=== PATIENT | female | born 1965 | race African-American/Black ===

== ENCOUNTER 2024-06-09 17:14 | Emergency (ER) | payer OTHER, SELFPAY ==
[2024-06-09 17:28] VITALS: BP 135/72; PULSE 82; RESP 16; TEMP 37.1; O2SAT 99
[2024-06-09 17:54] LABS: EDCOVIDSCREEN Negative (Negative)
--- NOTE | 2024-06-09 17:57 | ED.URI ---
HPI - URI/Sore Throat General Chief Complaint: Upper Respiratory Infection Stated Complaint: Dizziness/Chills Time Seen by Provider: 06/09/24 17:57 Source: patient Mode of arrival: ambulatory Limitations: no limitations History of Present Illness HPI Narrative: 58 yo F presents with c/o dizziness and fatigue for approx. 4 to 5 days. I feel drained, no energy . Denies URI symptoms. Prescribed hydralazine and clonidine 1 wk ago. Pt has been taking clonidine twice a day. Was not aware that she was only suppose to be taking it as needed for BP over 180. Has not been checking BP daily. Denies CP/SOB. No N/V. Last took clonidine at 10am. [place] dizzy prior to arrival when standing. No dizziness at this time. All systems reviewed and negative except as noted above. Related Data Home Medications Medication Instructions Recorded Confirmed clonidine HCl 0.1 mg tablet 0.1 mg PO DAILY 06/09/24 06/09/24 hydralazine 10 mg tablet 10 mg PO BID 06/09/24 06/09/24 valsartan 160 mg tablet 160 mg PO DAILY 06/09/24 06/09/24 Allergies Allergy/AdvReac Type Severity Reaction Status Date / Time No Known Allergies Allergy Verified 06/09/24 17:26 Review of Systems Review of Systems: CONSTITUTIONAL: Denies fever, chills, or sweats. EYES: Denies visual changes, redness, or discharge. ENT: Denies rhinorrhea, congestion, sore throat, or otalgia. CARDIOVASCULAR: Denies chest pain, palpitations, or edema. reports dizziness and fatigue RESPIRATORY: Denies cough or dyspnea. GASTROINTESTINAL: Denies abdominal pain, nausea, vomiting, or diarrhea. GENITOURINARY: Denies dysuria or hematuria. SKIN: Denies rash or itching. MUSCULOSKELETAL: Denies back pain, joint pain, or myalgia. NEUROLOGIC: Denies headache, numbness, or weakness. PSYCHIATRIC: Denies anxiety or depression. All other systems reviewed are negative, except as documented in HPI. [facility] Family History Family History (System 04/22/21 @ 13:50 by Chaitanya Bryan) Mother Hypertension Other Diabetes mellitus Social History Social History (System 04/22/21 @ 13:50 by Chaitanya Bryan) Smoking status: Never smoker Second hand tobacco smoke exposure: Yes Alcohol intake: never Comments At time of signature, agree with nursing past medical, surgical, social and family history. There is no relevant family history pertinent to the presenting complaint. Exam Narrative: GENERAL: This is a well-nourished, well-developed patient, in no apparent distress. HEAD: normocephalic, atraumatic. EYES: PERRL. Sclera clear/white. Vision is grossly intact. EARS: External ears normal, auditory canals clear and without drainage, TMs normal without perforation. Hearing grossly intact. NOSE: External nose normal with no obvious nasal discharge, nares without redness, no rhinorrhea. THROAT: Mucous membranes moist, posterior pharynx clear. NECK: Neck supple, non-tender without lymphadenopathy, masses or thyromegaly. CARDIOVASCULAR: Regular rate and rhythm without murmurs, gallops, or rubs. RESPIRATORY: Clear to auscultation. Breath sounds equal bilaterally. No wheezes, rales, or rhonchi. SKIN: warm, Dry, intact with no suspicious lesions or rash, good texture and turgor. NEURO: awake, alert, and oriented to person, place and time. There were no obvious focal neurologic abnormalities. EXTREMITIES: No joint tenderness, effusion, or edema noted. Course Course Level of Care: Express Care Visit Vital Signs Vital signs: Vital Signs Temperature 37.1 C 06/09/24 17:28 Pulse Rate 82 06/09/24 17:28 Respiratory Rate 16 06/09/24 17:28 Blood Pressure 135/72 06/09/24 17:28 Pulse Oximetry 99 06/09/24 17:28 Oxygen Delivery Room Air 06/09/24 17:28 Temperature 37.1 C 06/09/24 17:28 Pulse Rate 82 06/09/24 17:28 Respiratory Rate 16 06/09/24 17:28 Blood Pressure 135/72 06/09/24 17:28 Pulse Oximetry 99 06/09/24 17:28 Oxygen Delivery Room Air 06/09/24 17:28 [email or web address]
--- NOTE | 2024-06-09 18:06 | ECG_ITS ---
Test Date: 2024-06-09 18:16:57 Measurements Intervals [place] Rate: 73 P: 34 IN: 212 QRS: -29 QRSD: 103 T: 29 QT: 437 QTc: 483 Interpretive Statements SINUS RHYTHM WITH FIRST DEGREE AV BLOCK INCOMPLETE RIGHT BUNDLE BRANCH BLOCK LEFT VENTRICULAR HYPERTROPHY MINIMAL Q WAVES- HIGH LATERAL LEADS No previous ECG available for comparison BORDERLINE ECG Electronically Signed On 06-09-2024 18:31:55 CDT by Rajan Palacios D.O.
== END 2024-06-09 18:33 | disposition home or self-care (01) ==
PROVIDERS: Emergency Provider Nurse Practitioner Family; PCP Family Medicine
DX: R42 Dizziness and giddiness (principal); Z20.822 Contact with and (suspected) exposure to COVID-19; I10 Essential (primary) hypertension
CPT/HCPCS: 87426; 93005; 99213; G0463

== ENCOUNTER 2024-06-16 10:09 | Emergency (ER) | payer OTHER, SELFPAY ==
[2024-06-16] VITALS (8 sets, daily range): BP systolic 158–189; BP diastolic 88–94; PULSE 85–100; RESP 12–18; TEMP 36.3; O2SAT 100
--- NOTE | 2024-06-16 12:42 | ED.GENADULT ---
HPI - General Adult General Chief complaint: Recheck/Abnormal Lab/Rx Stated complaint: high blood pressure Time Seen by Provider: 06/16/24 12:20 History of Present Illness HPI narrative: 58-year-old female with history of hypertension presenting to the emergency department for evaluation for elevated blood pressures at home. She states that she did have her blood pressure medications switched a few weeks ago and her blood pressure has been running high since then. Patient is still taking hydralazine and was switched to olmesartan/hydrochlorothiazide combo 40/12.5 from her valsartan. Patient was also provided clonidine to take as needed. Patient was unsure as of the reasons to take the clonidine so patient has not been taking this. Patient states her blood pressure was running approximate 180 systolic. Patient did have follow-up with her physician today blood pressure was elevated. Patient denies any headache, chest pain, shortness of breath, nausea vomiting or any other symptoms. Related Data Home Medications Medication Instructions Recorded Confirmed clonidine HCl 0.1 mg tablet 0.1 mg PO DAILY 06/09/24 06/09/24 hydralazine 10 mg tablet 10 mg PO BID 06/09/24 06/09/24 valsartan 160 mg tablet 160 mg PO DAILY 06/09/24 06/09/24 Allergies Allergy/AdvReac Type Severity Reaction Status Date / Time No Known Allergies Allergy Verified 06/09/24 17:26 Review of Systems Review of Systems: All systems reviewed & are unremarkable except as noted in HPI and below PMFSH Family History Family History (System 04/22/21 @ 13:50 by Chaitanya Bryan) Mother Hypertension Other Diabetes mellitus Social History Social History (System 04/22/21 @ 13:50 by Chaitanya Bryan) Smoking status: Never smoker Second hand tobacco smoke exposure: Yes Alcohol intake: never Exam Narrative: APPEARANCE: Well appearing, no pain, no distress, well-nourished. HEAD: normocephalic, atraumatic. EYES: PERRLA/EOMI, conjunctivae clear. NOSE: Normal no drainage EARS:TMS clear with good light reflex. THROAT: Pharynx clear, no exudate. NECK: Supple. No adenopathy, no masses. RESPIRATORY: Airway patent, respirations nonlabored. Clear to auscultation bilaterally, no rales, rhonchi, wheezing. CARDIOVASCULAR: Regular rate and rhythm without murmurs rubs or gallops. ABDOMINAL: Soft, nontender, nondistended, normal bowel sounds MUSCULOSKELETAL: Moves all extremities. Strength/ROM intact, No edema, No calf tenderness. NEURO: Alert. Cranial nerves II through XII intact. Grossly intact SKIN: Warm, dry. Normal Color Course Vital Signs Vital signs: Vital Signs Temperature 97.3 F L 06/16/24 10:34 Pulse Rate 96 06/16/24 10:34 Respiratory Rate 16 06/16/24 10:34 Blood Pressure 189/88 H 06/16/24 10:34 Pulse Oximetry 100 06/16/24 10:34 Temperature 97.3 F L 06/16/24 10:34 Pulse Rate 92 06/16/24 12:46 Respiratory Rate 13 06/16/24 12:46 Blood Pressure 158/89 H 06/16/24 12:46 Pulse Oximetry 100 06/16/24 12:46 Oxygen Delivery Room Air 06/16/24 12:33 Medical Decision Making MDM Narrative Medical decision making narrative: 58-year-old female presents emergency department for evaluation for asymptomatic hypertension. Patient has not been taking her p.o. p.r.n. clonidine since having recent blood pressure medication changes. Patient was to be treated with clonidine in the emergency department. Patient's blood pressure did improve to 150/89 with no additional treatment. Patient was advised on how to take her clonidine at home. Patient was comfortable the plan for discharge and close follow-up. Low concern for ACS or hypertensive urgency. Differential Diagnosis Differential Diagnosis: Hypertensive urgency, hypertensive crisis, ACS Vital Signs Vital Signs: Vital Signs Temperature 97.3 F L 06/16/24 10:34 Pulse Rate 96 06/16/24 10:34 Respiratory Rate 16 06/16/24 10:34 Blood Pressure 189/88 H 06/16/24
--- NOTE | 2024-06-16 13:00 | PC.NURSE ---
Patient refused clonidine at this time due to blood pressure improving. EDP made aware. Patient comfortable being discharged.
== END 2024-06-16 13:11 | disposition home or self-care (01) ==
PROVIDERS: Emergency Provider Emergency Medicine; PCP Family Medicine
DX: I10 Essential (primary) hypertension (principal)
CPT/HCPCS: 99281

== ENCOUNTER 2024-09-09 11:52 | Emergency (ER) | payer OTHER, SELFPAY ==
--- NOTE | ~2024-09-09 | XR_ITS ---
EXAMINATION: XR ribs LT 2V DATE: 09/09/2024 12:18 INDICATION: Left chest pain. Fall. TECHNIQUE: 2 views of the left ribs on 3 radiographs were obtained. COMPARISON: None. FINDINGS: There is no left-sided pneumonia, pleural effusion, or pneumothorax. There are fracture def ormities of left ninth and 10th ribs. IMPRESSION: 1. Age-indeterminate fracture deformities of left ninth and 10th ribs. Reviewed, dictated and finalized at location A. ORK ARCHITECT MANAGER
[2024-09-09 12:02] VITALS: BP 190/87; PULSE 86; RESP 16; TEMP 36.8; O2SAT 100
--- NOTE | 2024-09-09 12:04 | ED_ITS ---
HPI - Fall General Chief Complaint: Fall Stated Complaint: Left Side Flank Pain Time Seen by Provider: 09/09/24 12:04 Source: patient Mode of arrival: ambulatory Limitations: no limitations History of Present Illness HPI Narrative: 58 yo F presents with c/o L sided rib pain for 3 wks. Fell from ladder and hit ribs on ladder while trying to hang xmas lights. Did not hit head. Denies LOC. Has been taking tylenol to treat pain. No SOB. pain not getting better . concerned for fracture. All systems reviewed and negative except as noted above. Related Data Home Medications ?Medication ?Instructions ?Recorded ?Confirmed ?Last Taken ?Type clonidine HCl 0.1 mg tablet 0.1 mg PO DAILY 06/09/24 06/09/24 Unknown History hydralazine 10 mg tablet 10 mg PO BID 06/09/24 06/09/24 Unknown History valsartan 160 mg tablet 160 mg PO DAILY 06/09/24 06/09/24 Unknown History Allergies Allergy/AdvReac Type Severity Reaction Status Date / Time No Known Allergies Allergy Verified 09/09/24 11:54 Review of Systems Review of Systems: CONSTITUTIONAL: Denies fever, chills, or sweats. EYES: Denies visual changes, redness, or discharge. ENT: Denies rhinorrhea, congestion, sore throat, or otalgia. CARDIOVASCULAR: Denies chest pain, palpitations, or edema. RESPIRATORY: Denies cough or dyspnea. GASTROINTESTINAL: Denies abdominal pain, nausea, vomiting, or diarrhea. GENITOURINARY: Denies dysuria or hematuria. SKIN: Denies rash or itching. MUSCULOSKELETAL: reports L sided rib pain NEUROLOGIC: Denies headache, numbness, or weakness. PSYCHIATRIC: Denies anxiety or depression. All other systems reviewed are negative, except as documented in HPI. PMFSH Family History Family History (System 04/22/21 @ 13:50 by Chaitanya Bryan) Mother Hypertension Other Diabetes mellitus Social History Social History (System 04/22/21 @ 13:50 by Chaitanya Bryan) Smoking status: Never smoker Second hand tobacco smoke exposure: Yes Alcohol intake: never Comments At time of signature, agree with nursing past medical, surgical, social and family history. There is no relevant family history pertinent to the presenting complaint. Exam Narrative: GENERAL: This is a well-nourished, well-developed patient, in no apparent distress. HEAD: normocephalic, atraumatic. EYES: PERRL. Sclera clear/white. Vision is grossly intact. EARS: External ears normal NOSE: External nose normal NECK: Neck supple, non-tender without lymphadenopathy, masses or thyromegaly. CARDIOVASCULAR: Regular rate and rhythm without murmurs, gallops, or rubs. RESPIRATORY: Clear to auscultation. Breath sounds equal bilaterally. No wheezes, rales, or rhonchi. SKIN: warm, Dry, intact with no suspicious lesions or rash, good texture and turgor. NEURO: awake, alert, and oriented to person, place and time. There were no obv ious focal neurologic abnormalities. EXTREMITIES: No joint tenderness, effusion, or edema noted. MUSCULOSKELETAL: tenderness to Lateral aspect L ribs 8 to 10th without swelling or bruising Course Course Level of Care: Express Care Visit Vital Signs Vital signs: Vital Signs Temperature 36.8 C 09/09/24 12:02 Pulse Rate 86 09/09/24 12:02 Respiratory Rate 16 09/09/24 12:02 Blood Pressure 190/87 H 09/09/24 12:02 Pulse Oximetry 100 09/09/24 12:02 Oxygen Delivery Room Air 09/09/24 12:02 Temperature 36.8 C 09/09/24 12:02 Pulse Rate 86 09/09/24 12:02 Respiratory Rate 16 09/09/24 12:02 Blood Pressure 190/87 H 09/09/24 12:02 Pulse Oximetry 100 09/09/24 12:02 Oxygen Delivery Room Air 09/09/24 12:02 Reviewed, patient's blood pressure elevated today. Did not take her blood pressure medications today. No chest pain or shortness of breath. Denies headache. MDM - Fall MDM Narrative Medical decision making narrative: Discussed x-ray results with patient. X-ray shows fracture to 9th and 10th ribs. Recommend ibuprofen or Tylenol to treat pain. Patient giving lifting restrictions for work. Will follow up with primary care physician as needed. Patient is aware of diagnosis, understands and agrees to treatment plan. Anticipatory guidance given. Patient agrees to follow-up as directed and is aware of reasons to seek care at the emergency department. Portions of this record may have been created with voice recognition software Imaging Data My impression: Agree with radiologist Radiologist's impression: EXAMINATION: XR ribs LT 2V DATE: 09/09/2024 12:18 INDICATION: Left chest pain. Fall. TECHNIQUE: 2 views of the left ribs on 3 radiographs were obtained. COMPARISON: None. FINDINGS: There is no left-sided pneumonia, pleural effusion, or pneumothorax. There are fracture deformities of left ninth and 10th ribs. IMPRESSION: 1. Age-indeterminate fracture deformities of left ninth and 10th ribs. Discharge Plan Discharge Clinical Impression: Fracture of rib of left side Qualifiers: Encounter type: initial encounter Rib fracture type: multiple ribs Fracture type: closed Qualified Code(s): S22.42XA - Multiple fractures of ribs, left side, initial encounter for closed fracture Patient Disposition: Home, Self-Care Condition: Stable Instructions: Rib Fracture (ED) Additional Instructions: The x-ray of your left ribs showed a fracture to your 9th and 10th ribs. Take ibupfen every 6 to 8 hours as needed for pain. Apply ice as needed for pain. Follow up with your doctor as needed. Patient Language: Tristanian Prescriptions: New ibuprofen 600 mg tablet 600 mg PO Q6H PRN (Reason: pain) Qty: 30 0RF No Action hydralazine 10 mg Tablet 10 mg PO BID clonidine HCl 0.1 mg Tablet 0.1 mg PO DAILY valsartan 160 mg tablet 160 mg PO DAILY Follow-up/Referrals: Carito,MD Manasa [Primary Care Provider] - Stand Alone Forms: Work/School Release IP Time of Disposition: 12:32
== END 2024-09-09 12:35 | disposition home or self-care (01) ==
PROVIDERS: Emergency Provider Nurse Practitioner Family; PCP Family Medicine
DX: S22.42XA Multiple fractures of ribs, left side, initial encounter for closed fracture (principal); W11.XXXA Fall on and from ladder, initial encounter
CPT/HCPCS: 71100; 99213; G0463

== ENCOUNTER 2025-07-12 13:23 | Outpatient (CLI) | payer OTHER, SELFPAY ==
--- NOTE | ~2025-07-12 | XR_ITS ---
EXAMINATION: XR_RIBSBI_CR, 07/12/2025 13:45 CDT HISTORY: pleurodynia; BILATERAL RIB PAIN AFTER FALL x3 MONTHS AGO COMPARISON: No comparisons available. Findings: No acute fracture or malalignment. No significant degenerative changes. Probable cholelithiasis otherwise soft tissues unremarkable Impression: No acute fracture or malalignment. Reviewed, dictated and finalized at location P. Impression: No acute fracture or malalignment.
--- OUTSIDE RECORDS SUMMARY | 2025-07-12 14:20 | XMS_ITS | Clinical Summary ---
Author Organization [facility] Address [address] [place] [address] Care Team Providers Care Health Policy Analyst Name Role Phone Unavailable Primary Care Provider Unavailabl e Allergies No known active allergies Medications Cholecalciferol (VITAMIN D) 2000 units Tab Active vitamin D3, cholecalciferol, 1.25 MG (33835 UT) capsule 09/28/2017 Active ferrous sulfate, 65 mg elemental, 325 (65 FE) MG tablet Take by mouth 2 (two) times daily. 09/28/2017 Active LISINOPRIL-HYDROC HLOROTHIAZIDE 20-12.5 MG tabletIndications :Essential hypertension TAKE 1 TABLET BY MOUTH DAILY 30 tablet 01/29/2021 Active AMLODIPINE 5 MG tabletIndications :Essential hypertension TAKE 1 TABLET(5 MG) BY MOUTH DAILY 30 tablet 02/04/2021 Active Active Problems Problem Noted Date Diagnosed Date Accidental fall 07/25/2018 BMI 35.0-35.9,adult 05/05/2018 Obesity 05/05/2018 Breast lump 12/15/2017 Anemia 11/26/2017 Backache 11/26/2017 Hypertension 11/26/2017 Irregular menstrual cycle 11/26/2017 Low vitamin D level 11/26/2017 Resolved Problems Problem Noted Date Diagnosed Date Resolved Date Colon cancer screening 11/26/201705/31 Encounter to establish care 11/26/2017 05/31/2020 Encounter for preventive health examination 11/11/2017 05/31/2020 Family History Medical History Relation Comments Hypertension Mother Relation Status Comments Mother Alive Social History Tobacco Use Types Packs/Day Years Used Date Smoking Tobacco: Never Smokeless Tobacco: Never Tobacco Cessation:Counseling Given: No Alcohol Use Standard Drinks/Week Comments No 0 (1 standard drink = 0.6 oz pur e alcohol) Comments No Sex and Gender Information Value Date Recorded Sex Assigned at Not on file Legal Sex Female 10:37 AM VESSEL SPECIALIST Gender Identity Not on file Sexual Orientation Not on file Last Filed Vital Signs Vital Sign Reading Time Taken Comments Blood Pressure 128/86 10/17/2019 12:29 PM VESSEL SPECIALIST Pulse 76 10/17/2019 10:57 AM VESSEL SPECIALIST Temperature 36.8 C (98.2 F) 05/19/2018 3:40 PM CDT Respiratory Rate 18 10/17/2019 10:57 AM VESSEL SPECIALIST Oxygen Saturation 99% 10/17/2019 10:57 AM VESSEL SPECIALIST Inhaled Oxygen Concentration - - Weight 91.2 kg (201 lb) 10/17/2019 10:57 AM VESSEL SPECIALIST Height 160 cm (5' 3) 10/17/2019 10:57 AM VESSEL SPECIALIST Body Mass Index 35.61 10/17/2019 10:57 AM VESSEL SPECIALIST Plan of Treatment Health Maintenance Due Date Last Done Comments Cervical Cancer Screening Pa p Smear (Age 30 to 64) Every 3 Years 1963 Hepatitis C 1981 DTaP, Tdap and Td Vaccines ( 1 - Tdap) 1982 Cervical Cancer Screening Pa p with HPV Testing (Age 30 to 64) Every 5 Years 1993 Cervical Cancer Screening wi th HPV 1993 Pneumococcal Vaccine: 50+ Years (1 of 1 - PCV) 2013 Zoster Vaccines (1 of 2) 2013 Mammogram Screening 09/02/2020 09/02/2018 Annual Physical 10/17/2020 10/17/2019 COVID-19 Vaccine (3 - 2024-2 6 season) 2025 07/23/2021, 07/03/2021 Influenza Adult (#1) 2025 07/05/2021 Colorectal Cancer Screening FIT-DNA (3 Years) 11/05/2025 11/05/2022, 11/05/2022, 10/23/2019 RSV Immunization or 60+ Years (1 - 1-dose 75+ series) 2038 Hepatitis A Vaccines Aged Out No long er eligible based on patient's age to complete this topic Meningococcal B Vaccine Aged Out No l onger eligible based on patient's age to complete this topic Meningococcal Vaccine Aged Out No silvestre gigi eligible based on patient's age to complete this topic RSV Immunizations Under 20 Months Aged Out No longer eligible b ased on patient's age to complete this topic Procedures Procedure Name Priority Date/Time Associated Diagnosis Comments COLOGUARD (SCAN ORDER) Routine 11/05/2022 MG DIAG W MICHELLE BILAT DIGI Routine 09/02/2018 10:29 AM VESSEL SPECIALIST Breast lump from Last 3 Months or Most Recently Relevant to Health Maintenance Results * COLOGUARD (SCAN) (11/05/2022) STOOL 11/05/2022 us Doc [facility] Scanned SCANNING Final Resu lt [facility] ON[facility] * MG DIAG W MICHELLE BILAT DIGI (09/02/2018 10:29 AM VESSEL SPECIALIST) Anatomical Region Laterality Modality Breast Bilateral Mammography 09/02/2018 10:4 0 AM VESSEL SPECIALIST Impressions 09/02/2018 10:42 AM VESSEL SPECIALIST =====IMPRESSION:===== No mammographic findings suggestive of malignancy. ASSESSMENT: ACR BI-RADS Category 2 - Benign. RECOMMENDATION: 1: Routine screening mammogram bilateral in 1 year COMMENTS: If prior mammographic examinations become available, an addendum can be placed on this report. Narrative 09/02/2018 10:42 AM VESSEL SPECIALIST EXAMINATION: Digital bilateral diagnostic mammogram with 3-D tomography EXAM DATE/TIME: 09/02/2018 10:08 AM REASON FOR EXAM: BREAST LUMP History of right breast injury and palpable lump November 2017. Lump has since resolved. No current palpable abnormality. COMPARISON: None available. TECHNIQUE: Digital diagnostic mammography of both breasts was performed in addition to 3-D Tomosynthesis technique. This study was read with the assistance of a computer-aided detection system. TISSUE DENSITY: The breast tissue is heterogeneously dense. FINDINGS: The dense tissue may obscure some lesions mammographically. No suspicious masses, malignant appearing calcifications, skin thickening or other abnormalities are present. Macrina OLIVEIRA MAMMO Final Result from Last 3 Months or Most Recently Relevant to Health Maintenance Insurance [employer]
--- OUTSIDE RECORDS SUMMARY | 2025-07-12 14:20 | XMS_ITS | Encounter Summary ---
Author Organization [facility] Healthcare Address [address] [place] [address] Care Team Providers Care Mathematics Professor Name Role Phone Manasa Arzate MD Primary Care Provider [phone] Encounter Details Date Type Department Care Team (Special Care Hospital Contact Info) Description 09/09/2024 [place] [facility] [place] [address] [place] [id number] Scanning, Provider Social History Tobacco Use Types Packs/Day Years Used Date Smoking Tobacco: Never AUDIT-C Answer Date Recorded Q1: How often do you have a drink containing alcohol? Never 06/16/2024 Q2: How many drinks containi ng alcohol do you have on a typical day when you are drinking? Patient does not drink Q3: How often do you have si x or more drinks on one occasion? Never 06/16/2024 PHQ-2 Answer Date Recorded PHQ-2 Total Score (If total score is 3 or more points, staff should administer the PHQ-9) 0 03/27/2024 Personal Safety Answer Date Recorded Getting School Help Needed Not on file 10/04 Comments No Sex and Gender Information Value Date Recorded Sex Assigned at Not on file Legal Sex Female 9:08 AM CDT Gender Identity Not on file Sexual Orientation Not on file documented as of this encounter Plan of Treatment Not on file documented as of this encounter Procedures Procedure Name Priority Date/Time Associated Diagnosis Comments SCAN - RADIOLOGY/IMAGING 09/09/2024 documented in this encounter Results * SCAN - RADIOLOGY/IMAGING (09/09/2024) Anatomical Region Laterality Modality Other us Provider Scanning Final Result documented in this encounter Visit Diagnoses Not on filedocumented in this encounter Care Teams Mathematics Professor Relationship Specialty Start Date End Date Manasa Arzate MD PCP - General Family Medicine 09/28/22 documented as of this encounter
--- OUTSIDE RECORDS SUMMARY | 2025-07-12 14:20 | XMS_ITS | Data Portability ---
Author Organization [facility] Ter[facility] Address [address] [facility] [place] [id number] Assessment No assessment recorded. Plan of Treatment Reminders Order Date Submit Date Provider Last Modified By Organization Details Last Modified Time Details Appointments None recorded. Lab vitamin D, 25-hydroxy , total, serum 2024 025 [email or web address] [employer], [address], [facility] [address], [place], [address], 12:34:15 hemoglobin A1c, QN, blood 2024 025 [id number] [employer] [facility], [address], [address], [place], [address], 12:34:42 iron panel, serum or plasma 2024 025 [id number] [employer] [facility], [address], [facility] [address], [place], [address], 12:34:29 culture, urine 2019 020 [facility], [address] [place] [address], [address], [place], [address], 0 17:15:54 CT + NG + TV, DNA, urine/swab 2019 020 [facility], [address] [place] [address], [address], [place], [address], 0 17:15:43 culture, urine 2018 019 LAINE SAVAGE, [address] [place], [place] [address]vikki Castaneda, [address], [place], [address], 9 07:09:07 CT + NG + TV, DNA, urine/swab 2018 019 LAINE [facility], [address] [place] [address], [address], [place], [address], 9 19:01:43 RPR (rapid plasma reagin), serum 2018 019 LAINE [facility], [address] [place] [address], [address], [place], [address], 9 14:11:46 HIV 1+2 AB + HIV 1 p24 Ag, qualitativ e immunoassa y, serum 2018 019 [facility], [address] [place] [address], [address], [place], [address], 9 14:11:46 hepatitis panel (A+B+C), acute, serum 2018 019 LAINE [facility], [address] [place] [address], [address], [place], [address], 9 14:11:45 bacterial vaginosis + vaginitis panel, vaginal 2018 019 [facility], [address] [place], [place] [address]vikki Castaneda, [address], [place], [address], 9 14:11:44 hsv (1+2) igg Ab, serum 2018 019 [facility], [address] [facility], [address], [place], [address], 9 14:11:45 Referral None recorded. Procedures None recorded. Surgeries None recorded. Imaging XR, ribs, bilateral 2024 025 [email or web address] [facility], [address], [address], [place], [address], 5 08:14:18 Medication Orders lisinopril 40 mg tablet [address] [facility], [address] [place] [address], [id number], 5 18:05:55 azithromyc in 500 mg tablet 2018 019 [email or web address] [facility], [address] [place] [address], [id number], 5 12:46:12 cholecalci ferol (vitamin D3) 1,250 mcg (50,000 unit) capsule 2017 018 [facility], [address] [place] [address], [id number], 8 16:09:23 amlodipine 5 mg tablet 2017 018 [facility], [address] [place] [address], [id number], 8 16:09:35 lisinopril 20 mg-hydroch lorothiazi de 12.5 mg tablet 2017 018 [email or web address] [facility]33060, [address] [place] [address], [id number], 5 17:12:17 Iron (ferrous sulfate) 325 mg (65 mg iron) tablet 2017 018 INTERFACE [facility]28324, [address], [place], [id number], 8 16:09:24 Patient TargetsNo targets recorded. Patient Instructions Encounter Date Encounter Id Patient Instructions Last Modified By Organization Details Last Modified Time 09/28/2017 [id number] learning about high blood pressure [email or web address] Not available 09/28/2017 16:08:55 anemia: care instructions [email or web address] Not available 09/28/2017 16:08:55 Education given. Explanation given on importance of compliance and potential damage that can occur for noncompliance with medications and follow up visits. Medications reviewed and prescribed dosing. Patient asked questions, answers given, and feedback given to demonstrate patient's understanding, written literature given. Not available 09/30/2017 14:24:06 08/29/2019 [id number] painful urinatio n (dysuria): care instructions Not available 08/29/2019 16:44:04 04/23/2020 [id number] painful urinatio n (dysuria): care instructions Not available 04/23/2020 16:14:35 Reason for Referral None Reported. Results Created Date Observation Date Name Description Value Unit Range Abnormal Flag Note LastModifiedBy Organization Detail LastModifiedTime 09/08/20 17 09/08/2017 CBC WBC 6.4 K/uL 3.4-10 .8 Not Available [facility] (Lab) [address], [place], [address], 09/08/2017 19:37:25 09/08/20 17 09/08/2017 CBC red blood count 3.9 M/uL 4.2-5. 4 low Not Available [facility] ([facility]) [address], [place], [address], 09/08/2017 19:37:25 09/08/20 17 09/08/2017 CBC hemoglobin 10.9 g/dL 11.5-1 5.5 low Not Available [facility] (Lab) [address], [place], [address], 09/08/2017 19:37:25 09/08/20 17 09/08/2017 CBC hematocrit 35.0 % 36.0-4 8.0 low Not Available [facility] (Lab) [address] [place], [address], 09/08/2017 19:37:25 09/08/20 17 09/08/2017 CBC MCV 90 fL 80-95 Not Available [facility] (Lab) [address] [place], [address], 09/08/2017 19:37:25 09/08/20 17 09/08/2017 CBC MCH 28 pg 27-32 Not Available [facility] (Lab) [address] [place], [address], 09/08/2017 19:37:25 09/08/20 17 09/08/2017 CBC MCHC 31 g/dL 32-36 low Not Available [facility] (Lab) [address] [place], [address], 09/08/2017 19:37:25 09/08/20 17 09/08/2017 CBC platelets 388 K/uL 155-37 9 high Not Available [facility] (Lab) [address] [place], [address], 09/08/2017 19:37:25 09/08/20 17 09/08/2017 CBC RDW 13.9 % 11.5-1 4.5 Not Available [facility] (Lab) [address] [place], [address], 09/08/2017 19:37:25 09/08/20 17 09/08/2017 CBC MPV 10.0 fL 8.9-12 .7 Not Available [facility] (Lab) [address] [place], [address], 09/08/2017 19:37:25 09/08/20 17 09/08/2017 CBC neutrophils absolute 3.8 K/uL 1.4-7. 0 Not Available [facility] (Lab) [address] [place], [address], 09/08/2017 19:37:25 09/08/20 17 09/08/2017 CBC lymphs (absolute) 2.2 K/uL 0.7-3. 1 Not Available [facility] (Lab) [address] [place], [address], 09/08/2017 19:37:25 09/08/20 17 09/08/2017 CBC monocytes (absolute) 0.4 K/uL 0.1-0. 9 Not Available [facility] (Lab) [address] [place], [address], 09/08/2017 19:37:25 09/08/20 17 09/08/2017 CBC eos (absolute) 0.1 K/uL 0.0-0. 4 Not Available [facility] (Lab) [address] [place], [address], 09/08/2017 19:37:25 09/08/20 17 09/08/2017 CBC baso (absolute) 0.0 K/uL 0.1-0. 3 low Not Available [facility] (Lab) [address] [place], [address], 09/08/2017 19:37:25 09/08/20 17 09/08/2017 CBC neut % 58.3 % 40.0-7 4.0 Not Available [facility] (Lab) [address] [place], [address], 09/08/2017 19:37:25 09/08/20 17 09/08/2017 CBC lymphs % 34.1 % 14.0-4 6.0 Not Available [facility] (Lab) [address] [place], [address], 09/08/2017 19:37:25 09/08/20 17 09/08/2017 CBC mono % 5.8 % 4.0-12 .0 Not Available [facility] (Lab) [address] [place], [address], 09/08/2017 19:37:25 09/08/20 17 09/08/2017 CBC eos % 1 % <=5 Not Available [facility] (Lab) [address] [place], [address], 09/08/2017 19:37:25 09/08/20 17 09/08/2017 CBC baso % 0.6 % 0.1-1. 1 Not Available [facility] (Lab) [address] [place], [address], 09/08/2017 19:37:25 09/08/20 17 09/08/2017 CMP, serum or plasm a glucose, serum 95 mg/dL 65-99 Not Available [facility]) [address] [facility], [place], [address], 09/08/2017 19:53:49 09/08/20 17 09/08/2017 CMP, serum or plasm a BUN 13 mg/dL 8-26 Not Available [facility] (Lab) [address], [place], [address], 09/08/2017 19:53:49 09/08/20 17 09/08/2017 CMP, serum or plasm a creatinine, serum 0.70 mg/dL 0.50-1 .40 Not Available [facility] (Lab) [address] [facility], [place], [address], 09/08/2017 19:53:49 09/08/20 17 09/08/2017 CMP, serum or plasm a BUN/creatnin e ratio 18.6 Not Available [facility]) [address] [place], [address], 09/08/2017 19:53:49 09/08/20 17 09/08/2017 CMP, serum or plasm a sodium, serum 140.0 mEq/L 136.0- 144.0 Not Available [facility] (Lab) [address] [place], [address], 09/08/2017 19:53:49 09/08/20 17 09/08/2017 CMP, serum or plasm a potassium, serum 4.5 mmol/ L 3.5-5. 3 Not Available [facility] (Lab) [address] [place], [address], 09/08/2017 19:53:49 09/08/20 17 09/08/2017 CMP, serum or plasm a chloride, serum 101 mmol/ l 101-11 1 Not Available [facility] (Lab) [address] [place], [address], 09/08/2017 19:53:49 09/08/20 17 09/08/2017 CMP, serum or plasm a carbon dioxide total 25.7 mmol/ L 21.0-3 2.0 Not Available [facility] (Lab) [address], [place], [address], 09/08/2017 19:53:49 09/08/20 17 09/08/2017 CMP, serum or plasm a aniongp 18.0 mmol/ L Not Available [facility] (Lab) [address], [place], [address], 09/08/2017 19:53:49 09/08/20 17 09/08/2017 CMP, serum or plasm a calcium, serum 9.6 mg/dL 8.2-10 .0 Not Available [facility] (Lab) [address], [place], [address], 09/08/2017 19:53:49 09/08/20 17 09/08/2017 CMP, serum or plasm a total protein 8.7 g/dL 6.7-8. 2 high Not Available [facility] ([facility]) [address] [place], [address], 09/08/2017 19:53:49 09/08/20 17 09/08/2017 CMP, serum or plasm a albumin, serum 4.0 g/dL 3.5-5. 5 Not Available [facility] (Lab) [address] [place], [address], 09/08/2017 19:53:49 09/08/20 17 09/08/2017 CMP, serum or plasm a agratio 0.9 Not Available [facility] (Lab) [address] [place], [address], 09/08/2017 19:53:49 09/08/20 17 09/08/2017 CMP, serum or plasm a bilt 0.2 mg/dL 0.2-1. 0 Not Available [facility] (Lab) [address] [place], [address], 09/08/2017 19:53:49 09/08/20 17 09/08/2017 CMP, serum or plasm a AST 13.0 U/L 10.0-4 2.0 Not Available [facility] (Lab) [address] [place], [address], 09/08/2017 19:53:49 09/08/20 17 09/08/2017 CMP, serum or plasm a ALT 8.0 U/L 10.0-6 0.0 low Not Available [facility] ([facility]) [address], [place], [address], 09/08/2017 19:53:49 09/08/20 17 09/08/2017 CMP, serum or plasm a alk phos 80.0 IU/L 42.0-1 21.0 Not Available [facility] (Lab) [address] [place], [address], 09/08/2017 19:53:49 09/08/20 17 09/08/2017 CMP, serum or plasm a osmol 279.0 mOsm/ L 275.0- 301.0 Not Available [facility] (Lab) [address] [place], [address], 09/08/2017 19:53:49 09/08/20 17 09/08/2017 CMP, serum or plasm a eGFR, AM 113 m/lmi n/1.7 3_m >=60 Not Available [facility] (Lab) [address] [place], [address], 09/08/2017 19:53:49 09/08/20 17 09/08/2017 CMP, serum or plasm a eGFR, non- AM 93 mL/mi n/1.7 3/m >=60 Not Available [facility] (Lab) [address] [place], [address], 09/08/2017 19:53:49 09/08/20 17 09/08/2017 TSH, serum or plasm a TSH 1.88 uIU/m L 0.50-4 .50 Not Available [facility] (Lab) [address] [facility], [place], [address], 09/08/2017 19:54:59 09/08/20 17 09/09/2017 HbA1c (hemo globi n A1c), blood hemoglobin A1C 6.1 % 4.8-5. 6 high . Pre-d iabet es: 5.7 - 6.4 Diabe nilo: >6.4 Glyce beti contr ol for adult s with diabe nilo: <7.0 Not Available [facility] (Lab) [address] [facility], [place], [address], 09/10/2017 10:00:04 09/08/20 17 09/09/2017 vitam in D, 25-hy droxy , total , serum vitamin D, 25-hydroxy 10.5 NG/mL 30.0-1 00.0 low Vitam in D defic iency has been defin ed by the Insti tute of Medic ine and an Endoc rine Socie ty pract ice guide line as a level of serum 25-OH vitam in D less than 20 ng/mL (1,2) . The Endoc rine Socie ty went on to furth er defin e vitam in D insuf ficie ncy as a level betwe en 21 and 29 ng/mL (2). 1. IOM (Inst itute of Medic ine). 2009. Dieta ry refer ence intak es for calci um and D. Sathish bean [place]: The Natio nal [facility] Press . 2. Deeede peraza [place], Tree wilson [place], Nicole off-F errar i SUMMERS, et al. Evalu ation , treat ment, and preve ntion of vitam in D defic iency : an Endoc rine Socie ty clini omaira pract ice guide line. JCEM. 2010; 96(7) :1911 -30. Not Available [facility] (Lab) [address], [place], [address], 09/10/2017 10:01:34 09/08/20 17 09/09/2017 T4, total , serum thyroxine T4 7.1 ug/dL 4.5-12 .0 Not Available [facility] (Lab) [address], [place], [address], 09/10/2017 10:01:37 04/04/20 19 04/06/2019 bacte rial vagin osis + vagin itis panel , vagin al chlamydia trachomatis, SANTI Negati ve negati ve Not Available [facility] ([facility]) [address] [place], [address], 04/07/2019 14:11:44 04/04/20 19 04/06/2019 bacte rial vagin osis + vagin itis panel , vagin al neisseria gonorrhoeae, SANTI Negati ve negati ve Not Available [facility] ([facility]) [address] [place], [address], 04/07/2019 14:11:44 04/04/2004/07/2019 bacte rial vagin osis + vagin itis panel , vagin al atopobium vaginae High - 2 score abnormal Not Available [facility] ([facility]) [address] [place], [address], 04/07/2019 14:11:44 04/04/2004/07/2019 bacte rial vagin osis + vagin itis panel , vagin al bvab 2 High - 2 score abnormal Not Available [facility] ([facility]) [address] [place], [address], 04/07/2019 14:11:44 04/04/2004/07/2019 bacte rial vagin osis + vagin itis panel , vagin al megasphaera 1 High - 2 score abnormal Calcu late total score by xavi harmon the 3 indiv idual bacte rial vagin osis (BV) marke r score s toget her. Total score is inter prete d as follo ws: Total score 0-1: Indic ates the absen ce of BV. Total score 2: Indet ermin ate for BV. Addit ional clini omaira data shoul d be evalu ated to estab jam a diagn osis. Total score 3-6: Indic ates the prese nce of BV. This test was devel oped and its perfo rmanc e lizeth cteri stics deter mined by [employer]. It has not been clear ed or appro tiarra by the Food and Drug Admin istra tion. The FDA has deter mined that such clear ance or appro jessica is not neces terrence. Not Available [facility] ([facility]) [address] [place], [address], 04/07/2019 14:11:44 04/04/2004/07/2019 bacte rial vagin osis + vagin itis panel , vagin al logan albicans, SANTI Negati ve negati ve Not Available [facility] ([facility]) [address] [place], [address], 04/07/2019 14:11:44 04/04/2004/07/2019 bacte rial vagin osis + vagin itis panel , vagin al logan glabrata, SANTI Negati ve negati ve This test was devel oped and its perfo rmanc e lizeth cteri stics deter mined by [employer]. It has not been clear ed or appro tiarra by the Food and Drug Admin istra tion. The FDA has deter mined that such clear ance or appro jessica is not neces terrence. Not Available [facility] ([facility]) [address] [place], [address], 04/07/2019 14:11:44 04/04/2004/07/2019 bacte rial vagin osis + vagin itis panel , vagin al trich vag by SANTI Negati ve negati ve Not Available [facility] ([facility]) [address] [facility], [place], [address], 04/07/2019 14:11:44 04/04/2004/05/2019 hepat itis panel (A+B+ C), acute , serum hep A Ab, IgM TNP No speci men recei tiarra. Not Available [facility] ([facility]) [address] [facility], [place], [address], 04/07/2019 14:11:45 04/04/2004/05/2019 hepat itis panel (A+B+ C), acute , serum HBsAg screen TNP Test not perfo rmed Not Available [facility] ([facility]) [address] [facility], [place], [address], 04/07/2019 14:11:45 04/04/2004/05/2019 hepat itis panel (A+B+ C), acute , serum hep B core Ab, IgM TNP Test not perfo rmed Not Available [facility] ([facility]) [address] [facility], [place], [address], 04/07/2019 14:11:45 04/04/2004/05/2019 hepat itis panel (A+B+ C), acute , serum hep C virus Ab TNP Test not perfo rmed Not Available [facility] ([facility]) [address] [place], [address], 04/07/2019 14:11:45 04/04/2004/05/2019 hsv (1+2) igg Ab, serum hsv 1 IgG, type spec TNP index No speci men recei tiarra. Negat chaya <0.91 Equiv ocal 0.91 - 1.09 Posit chaya >1.09 Note: Negat chaya indic ates no antib odies detec candi to HSV-1 . Equiv ocal may sugge st early infec tion. If clini syeda appro priat e, retes t at later date. Posit chaya indic ates antib odies detec candi to HSV-1 . Not Available [facility] ([facility]) [address] [facility], [place], [address], 04/07/2019 14:11:45 04/04/2004/05/2019 hsv (1+2) igg Ab, serum hsv 2 IgG, type spec TNP Test not perfo rmed Not Available [facility] ([facility]) [address] [facility], [place], [address], 04/07/2019 14:11:45 04/04/2004/05/2019 RPR (rapi d plasm a reagi n), serum RPR TNP No speci men recei tiarra. Not Available [facility] ([facility]) [address] [facility], [place], [address], 04/07/2019 14:11:46 04/04/2004/05/2019 HIV 1+2 AB + HIV 1 p24 Ag, quali tativ e immun oassa y, serum HIV screen 4TH generation wrfx TNP No speci men recei tiarra. Not Available [facility] ([facility]) [address] [facility], [place], [address], 04/07/2019 14:11:46 04/04/2004/05/[address] probl em request problem TNP No speci men recei tiarra. TEST: 17452 4 Hepat itis Panel (4) 98613 2 HSV 1 and 2-Spe c Ab, IgG w/Rfx 64586 5 RPR, Rfx Qn RPR/[place] [address] 5 Panel 27684 5 Not Available [facility] ([facility]) [address] [facility], [place], [address], 04/07/2019 14:11:47 12/10/08/30/2019 bacte rial vagin osis + vagin itis panel , vagin al atopobium vaginae TNP score No Aptim a trans port recei tiarra. Not Available [facility] ([facility]) [address] [facility], [place], [address], 08/31/2019 07:09:07 08/29/2008/30/2019 bacte rial vagin osis + vagin itis panel , vagin al bvab 2 TNP Test not perfo rmed Not Available [facility] ([facility]) [address] [place], [address], 08/31/2019 07:09:07 08/29/2008/30/2019 bacte rial vagin osis + vagin itis panel , vagin al megasphaera 1 TNP Test not perfo rmed Not Available [facility] ([facility]) [address] [facility], [place], [address], 08/31/2019 07:09:07 08/29/2008/30/2019 bacte rial vagin osis + vagin itis panel , vagin al logan albicans, SANTI TNP Test not perfo rmed Not Available [facility] ([facility]) [address] [place], [address], 08/31/2019 07:09:07 08/29/2008/30/2019 bacte rial vagin osis + vagin itis panel , vagin al logan glabrata, SANTI TNP Test not perfo rmed Not Available [facility] ([facility]) [address] [place], [address], 08/31/2019 07:09:07 08/29/2008/30/2019 bacte rial vagin osis + vagin itis panel , vagin al trich vag by SANTI TNP Test not perfo rmed Not Available [facility] ([facility]) [address] [place], [address], 08/31/2019 07:09:07 08/29/20 19 08/30/2019 bacte rial vagin osis + vagin itis panel , vagin al chlamydia trachomatis, SANTI TNP Test not perfo rmed Not Available [facility] ([facility]) [address] [facility], [place], [address], 08/31/2019 07:09:07 08/29/20 19 08/30/2019 bacte rial vagin osis + vagin itis panel , vagin al neisseria gonorrhoeae, SANTI TNP Test not perfo rmed Not Available [facility] ([facility]) [address] [place], [address], 08/31/2019 07:09:07 08/29/20 19 08/31/2019 cultu re, urine urine culture,comp rehensive Final report Not Available [facility] ([facility]) [address] [place], [address], 08/31/2019 07:09:07 08/29/20 19 08/31/2019 cultu re, urine result 1 Commen t Mixed uroge nital maria g 2,000 Colon ies/m L Not Available [facility] ([facility]) [address] [place], [address], 08/31/2019 07:09:07 08/29/20 19 08/30/2019 speci men statu s repor t specimen status report TNP No Aptim a trans port recei tiarra. TEST: 76193 1 NuSwa b Vagin itis Plus (VG+) Not Available [facility] ([facility]) [address] [place], [address], 08/31/2019 07:09:08 04/23/20 20 04/24/2020 cultu re, urine urine culture, routine Final report Not Available [facility] ([facility]) [address] [place], [address], 04/25/2020 06:27:27 04/23/2004/24/2020 cultu re, urine result 1 Commen t Mixed uroge nital maria g Less than 10,00 0 colon ies/m L Not Available [facility] ([facility]) [address] [facility], [place], [address], 04/25/2020 06:27:27 04/23/2004/25/2020 CT + NG + TV, DNA, urine /swab chlamydia by SANTI Negati ve negati ve Not Available [facility] ([facility]) [address] [facility], [place], [address], 04/25/2020 06:27:28 04/23/2004/25/2020 CT + NG + TV, DNA, urine /swab gonococcus by SANTI Negati ve negati ve Not Available [facility] ([facility]) [address] [facility], [place], [address], 04/25/2020 06:27:28 04/23/2004/25/2020 CT + NG + TV, DNA, urine /swab trich vag by SANTI Negati ve negati ve Not Available [facility] ([facility]) [address] [place], [address], 04/25/2020 06:27:28 04/23/2004/23/2020 urina lysis , dipst ick Color Yellow Not Available In-Office Order Internal Use Only DO Not Attach Compendium DO Not Attach Compendium, Do Not Delete/merge, 04/23/2020 15:47:00 04/23/2004/23/2020 urina lysis , dipst ick Appearance Slight ly Cloudy Not Available In-Office Order Internal Use Only DO Not Attach Compendium DO Not Attach Compendium, Do Not Delete/merge, 04/23/2020 15:47:00 04/23/2004/23/2020 urina lysis , dipst ick Glucose Negati ve Not Available In-Office Order Internal Use Only DO Not Attach Compendium DO Not Attach Compendium, Do Not Delete/merge, 04/23/2020 15:47:00 04/23/20 20 04/23/2020 urina lysis , dipst ick Leukocytes Negati ve Not Available In-Office Order Internal Use Only DO Not Attach Compendium DO Not Attach Compendium, Do Not Delete/merge, 04/23/2020 15:47:00 04/23/20 20 04/23/2020 urina lysis , dipst ick Nitrite negati ve Not Available In-Office Order Internal Use Only DO Not Attach Compendium DO Not Attach Compendium, Do Not Delete/merge, 04/23/2020 15:47:00 04/23/20 20 04/23/2020 urina lysis , dipst ick Urobilinogen .2 Not Available In-Of fice Order Internal Use Only DO Not Attach Compendium DO Not Attach Compendium, Do Not Delete/merge, 04/23/2020 15:47:00 04/23/20 20 04/23/2020 urina lysis , dipst ick Protein Negati ve Not Available In-Office Order Internal Use Only DO Not Attach Compendium DO Not Attach Compendium, Do Not Delete/merge, 04/23/2020 15:47:00 04/23/20 20 04/23/2020 urina lysis , dipst ick pH 5.0 Not Available In-Office Order Internal Use Only DO Not Attach Compendium DO Not Attach Compendium, Do Not Delete/merge, 04/23/2020 15:47:00 04/23/20 20 04/23/2020 urina lysis , dipst ick Blood Negati ve Not Available In-Office Order Internal Use Only DO Not Attach Compendium DO Not Attach Compendium, Do Not Delete/merge, 04/23/2020 15:47:00 04/23/20 20 04/23/2020 urina lysis , dipst ick Specific Lenore 1.025 Not Available In-Off ice Order Internal Use Only DO Not Attach Compendium DO Not Attach Compendium, Do Not Delete/merge, 04/23/2020 15:47:00 04/23/20 20 04/23/2020 urina lysis , dipst ick Ketone Negati ve Not Available In-Office Order Internal Use Only DO Not Attach Compendium DO Not Attach Compendium, Do Not Delete/merge, [id number] 04/23/2020 15:47:00 04/23/20 20 04/23/2020 urina lysis , dipst ick Bilirubin Negati ve Not Available In-Office Order Internal Use Only DO Not Attach Compendium DO Not Attach Compendium, Do Not Delete/merge, [id number] 04/23/2020 15:47:00 Result Notes None recorded. Problems Name Problem SNOMED Code Status Onset Date Resolution Date Notes Provider Name and Address Organization Details Recorded Time Bronchitis 41164384 Active Lasha Evans MD Attn: Sid eden,[address] [facility], [place], [address], [place] [facility] 5 20:42:47 Sinusitis 86547727 Active Lasha Evans MD Attn: Raheelbetsy harmon,[address] [facility], [place], [address], [place] [facility] 5 20:42:47 Essential hypertension 18233076 Active Tyrel Villa MD Attn: Sid eden,[address] [facility], [place], [address], [place] [facility] 5 17:13:43 Iron deficiency anemia 72544074 Active 2024 Tyrel Villa MD Attn: Sid eden,[address] [facility], [place], [address], [place] [facility] 5 17:13:40 Vitamin D deficiency 99612775 Active 2024 Tyrel Villa MD Attn: Sid harmon,[address] [facility], [place], [address], [place] [facility] 5 17:13:41 Seasonal allergy 750976269 Active 2024 Tyrel Villa MD Attn: Sid harmon,[address] [facility], [place], [address], [place] [facility] 5 17:13:42 Prediabetes 294615659 Active 2024 Tyrel Villa MD Attn: Sid harmon,[address] [facility], [place], [address], [facility] 17:13:44 Rib pain 195414177 Active 2024 Tyrel Villa MD Attn: Sid harmon,[address], [place], [address], [facility] 17:13:46 Problem Notes None recorded. Procedures Surgical History Date Name Laterality Status Provider Name and Address Organization Details Recorded Time section completed Elli Willis MA [facility] 03/19/2025 17:58:00 Imaging Results None recorded. Procedure Notes None recorded. Medical Equipment None Reported. Allergies No known drug allergies Medications Name Sig Start Date Stop Date Status Note LastModified by Organization Details LastModified Time clindamycin HCl 300 mg capsule Take 1 capsule twice a day by oral route as directed for 7 days. 09/10 completed Not Available Not Available Not Available Iron (ferrous sulfate) 325 mg (65 mg iron) tablet Take 1 tablet twice a day by oral route. 2017 active Not Available Not Available Not Avai lable lisinopril 20 mg-hydrochl orothiazide 12.5 mg tablet Take 1 tablet every day by oral route. 03/19 completed Not Available Not Available Not Available promethazin e 6.25 mg/5 mL oral syrup Take 10 mL every 6 hours by oral route. 09/10 completed Not Available Not Available Not Available Medrol (Eric) 4 mg tablets in a dose pack Take by mouth as directed 09/10 completed Not Available Not Available Not Available Zithromax Z-Eric 250 mg tablet TAKE 2 TABLETS (500 MG) BY ORAL ROUTE ONCE DAILY FOR 1 DAY THEN 1 TABLET (250 MG) BY ORAL ROUTE ONCE DAILY FOR 4 DAYS 09/10 completed Not Available Not Available Not Available Zyrtec 10 mg tablet Take 1 tablet every day by oral route. 2016 active Not Available Not Available Not Avai lable metronidazo le 500 mg tablet Take 1 tablet every 12 hours by oral route for 7 days. 03/19 completed Not Available Not Available Not Available amlodipine 5 mg tablet TAKE 1 TABLET BY MOUTH EVERY DAY 2017 active Not Available Not Available Not Avai lable lisinopril 20 mg-hydrochl orothiazide 25 mg tablet Take 1 tablet every day by oral route. 09/10 completed Not Available Not Available Not Available hydrochloro thiazide 25 mg tablet TAKE 1 TABLET BY MOUTH EVERY DAY 03/19 completed Not Available Not Available Not Available ergocalcife rol (vitamin D2) 1,250 mcg (50,000 unit) capsule TAKE 1 CAPSULE BY MOUTH 2 TIMES A WEEK active Not Available Not Available No t Available lisinopril 40 mg tablet TAKE 1 TABLET BY MOUTH EVERY DAY active Not Available Not Available No t Available fluticasone propionate 50 mcg/actuati on nasal spray,suspe nsion Morven 1 spray every day by intranasa l route as needed. 2016 active Not Available Not Available Not Avai lable azithromyci n 500 mg tablet Take 2 tablets every day by oral route for 1 day. 02/14 completed Not Available Not Available Not Available ProAir HFA 90 mcg/actuati on aerosol inhaler Inhale 2 puffs every 4 hours by inhalatio n route as needed. 09/10 completed Not Available Not Available Not Available cholecalcif jordan (vitamin D3) 1,250 mcg (50,000 unit) capsule TAKE 1 CAPSULE BY MOUTH 2 TIMES A WEEK active Not Available Not Available No t Available Vitals Date Recorded Body height Body mass index (BMI) Body weight Heart rate Respiratory rate Body temperature Systolic And Diastolic Provider Name and Address Organization Details Last Updated DateTime 8 160.02 cm 33.8 kg/m2 08762.1 4 g 96 /min 24 /min 98.8 [degF] 202/110 mm[Hg] Carolynn Eisenberg MA [facility] 8 15:54:39 Date Recorded Body height Body mass index (BMI) Body weight Oxygen saturation Oxygen saturation in Arterial blood by Pulse oximetry Heart rate Systolic And Diastolic Provider Name and Address Organization Details Last Updated DateTime 5 158.75 cm 33 kg/m2 58568.5 g 99 % 99 % 98 /min 140/88 mm[Hg] Elli Willis MA [facility] 5 16:23:25 Date Recorded Body height Body mass index (BMI) Body weight Oxygen saturation Oxygen saturation in Arterial blood by Pulse oximetry Heart rate Body temperature Systolic And Diastolic Provider Name and Address Organization Details Last Updated DateTime 9 158.75 cm 36 kg/m2 27226.8 7 g 99 % 99 % 97 /min 98.6 [degF] 138/78 mm[Hg] Anastasiya Rodriguez MA [facility] 9 11:45:44 Date Recorded Body height Body mass index (BMI) Body weight Provider Name and Address Organization Details Last Updated DateTime 04/23/2020 158.75 cm 36.9 kg/m2 07339.44 g Anabell Zhu MA [facility] 04/23/2020 16:09:18 Date Recorded Body height Body temperature Body mass index (BMI) Body weight Heart rate Oxygen saturation Oxygen saturation in Arterial blood by Pulse oximetry Systolic And Diastolic Provider Name and Address Organization Details Last Updated DateTime 9 158.75 cm 98.6 [degF] 37 kg/m2 48283.2 4 g 83 /min 98 % 98 % 138/80 mm[Hg] Chanelle Elis [facility] 9 15:59:09 Social History Question Answer Notes LastModified by Organizat ion Details LastModified Time Tobacco Smoking Status Never Smoker Abigail Rojas MA null, [facility] 11/04/2015 11:34:31 What Was The Date Of Your Most Recent Tobacco Screening? 03/19/2025 [email or web address] Information not available 03/19/2025 Sex: Unknown Functional Status None recorded. Mental Status None recorded. Family History Nothing Reported. Medical History Condition Response High Blood Pressure Y Gynecological HistoryNo gynecological history recorded. Obstetrics History GPAL:G 0 P 0 0 0 0 Past Encounters Encounter ID Performer Location Encounter Start Date Encounter Closed Date Diagnosis/Indication Diagnosis SNOMED-CT Code Diagnosis ICD10 Code Diagnosis IMO Codes Diagnosis Note [id number] Lasha Evans MD [address] [address] 11/26/2014 18:14:27 11/27/2014 10:07:57 Bronchitis 49240759 Sinusitis 98506959 [id number] Carlee Tyler, [facility] (Adult/Fa m Med) [address] [place] [address] 10/21/2015 11:35:32 10/21/2015 17:59:01 Essential hypertension 21107589 I10 [id number] Vijay Doshi MD [facility] (Adult/Fa m Med) [address] [place] [address] 11/04/2015 11:08:02 11/04/2015 17:48:48 Essential hypertension 15391000 I10 [id number] Elza Coreas [facility] [address] [facility] [address] [place] [address] 08/20/2016 14:12:43 08/25/2016 17:17:01 Venereal disease screening 710707561 Z11.3 Pt declined hepatitis, hiv and syphillis testing. Blood pres sure above reference range 76028245 R03.0 bp reading per ma 220/110 during clinic visit. pt reports starting a new job and has not taken medication in the past three days. she reports her bp cuff at home is not working properly. she denies any headaches, nose bleeds, blurred vision, chest pain, sob, palpations and murguia. pt to fu in ed at [facility] immediate y following dc from clinic for std eval. risk (e.g. CVA, MS) vs benefit explained to pt. questions answered and encouraged . pt states understand ing. Bacterial vaginosis 4197 35328 N76.0 [id number] Carlee Scott [facility] (Adult/Fa m Med) [address] [place] [address] 09/10/2016 12:52:54 09/11/2016 12:03:08 Essential hypertension 49145921 I10 [id number] Vijay Doshi MD [facility] (Adult/Fa m Med) [address] [place] [address] 09/08/2017 15:24:47 09/21/2017 13:24:44 Essential hypertension 21586861 I10 Rhinitis 90913838 J00 Common cold 50248041 J00 [id number] Vijay Dosih MD [facility] (Adult/Fa m Med) [address] [place] [address] 09/28/2017 15:28:37 10/01/2017 10:53:55 Essential hypertension 35493075 I10 Prediabetes 235680931 R7 3.03 Anemia 237402338 D64.9 Vitamin D deficiency 347 72100 E55.9 [id number] [facility] [address] [place] [address] [address] [place] [address] 04/04/2019 11:37:59 04/05/2019 08:38:56 Venereal disease screening 127231447 Z11.3 labs pending. will tailor treatment if needed. condoms given. safe sex discussed. no sex x 2 weeks. Chlamydial infection 105 546865 A74.9 [id number] Elza Coreas [facility] [address] [place] [address] [address] [place] [address] 08/29/2019 15:12:31 08/30/2019 09:07:08 Dysuria 47431600 R30.9 ua negative. culture pending. will tailor treatment accordingl y upon receipt of labs. pt who is a [facility] tested pos. for chlamydia with results being received today. however, pt did not mention testing pos. for chlamydia. dt hipaa unable to inform/froy at patient. pt believes urine culture is pending (while g/c added). will treat upon receipt of labs. [id number] Elza Coreas [facility] ([facility]) [address] [place] [address] 04/23/2020 16:02:27 04/24/2020 09:17:22 Venereal disease screening 440961781 Z11.3 labs pending. will tailor treatment if needed. condoms and bbsti declined. safe sex discussed. Dysuria 80724193 R30.9 ua negative. culture pending. will tailor treatment accordingl y upon receipt of labs. ma performing ua reports extremely foul smelling urine. pt reports large consumptio ns of raw garlic recently. [id number] Tyrel Villa MD [facility] [address] [facility] [address] [place] [address] 03/19/2025 16:05:50 03/20/2025 11:39:36 Rib pain 068745810 R07.81 38100 condition acute bilateral order bilateral rib xrays. Prediabetes 625602760 R7 3.03 550192 conditon chronic and at goal continue low carb diet. order hem a1c Essential hypertension 79434780 I10 21242 conditon chronic and at goal order norvasc d/c the lisinopril /hctz order lisinopril 40 mg Seasonal allergy 4920592 04 J30.2 13488 condition chronic and at goal cotninue flonase and zytec Vitamin D deficiency 347 29038 E55.9 12921 conditon chroinc and at goal cojntinue the vit d order vit d level Iron defic iency anemia 19409401 D50.9 36972538 conditon chronic and at goal order iron panel Health Concerns Section Related Observation LastModified by Organization Detai ls LastModified Time None Recorded Concern Status LastModified by Organization Details LastModified Time None Recorded Advance Directives Directive None Recorded Payers Insurance Date Sequence Insurance Name Policy Number Policy Bettencourt Covered Member ID Bettencourt Member ID Guarantor Name 03/19/2025 1 [facility] PRIOR TO 03/20/2021 (MEDICAID REPLACEMENT - HMO) Magui Moreira [id number] Trudy Moreira 03/19/2025 SLIDING FEE SCHEDULE - DISCOUNT Trudy Moerira 07/06/2025 1 [facility] (MEDICAID HMO) [id number] Magui Moreira [id number] Trudy Moreira Notes Date Note Type Note Provider Name and Address Organization Details Recorded Time 09/28/2017 text/html lab follow updid not take BP medicines today Carlee [place] [facility] [facility] 09/30/2017 14:30:55 04/04/2019 text/html ROS as noted in the HPI Pt presents to clinic requesting STI testing. Her partner was recently treated for chlamydia. She reports one male sex partner within the past 6 mo. Pt denies nausea, vomiting, fever, rash, vaginal dc, chills, lower abdominal discomfort, diarrhea, constipation and dysuria. HARIS Hancock-FATMATA Attn: Accounting[address] [place], [address], [facility] 04/04/2019 13:01:24 08/29/2019 text/html ROS as noted in the HPI Pt presents to clinic requesting UA; as she c/o dark colored urine x1 day. Pt denies nausea, vomiting, fever, chills, flank pain, lower abdominal discomfort, vaginal dc, rash, diarrhea, constipation and dysuria. [facility] Attn: Accounting[address] [place], [address], [facility] 08/29/2019 17:30:45 04/23/2020 text/html ROS as noted in the HPI Pt presents to clinic requesting STI testing and UA. She reports a dark color to her urine. She states she has been consuming large amounts of raw garlic. She reports one male sex partners within the past 6 mo. Pt denies nausea, vomiting, fever, chills, rash, vaginal dc, lower abdomenal discomfort, cough, CP, SOB, MURGUIA, diarrhea, constipation and dysuria. [facility] Attn: Accounting[address] [place], [address], [facility] 04/23/2020 16:34:01 03/19/2025 text/html states that she is urinating more with the hctz the htn is under contrl she is watching her blood sugar. she is taking her vit d the allergies are under contrl bilateral rib pain Tyrel Villa MD Attn: Accounting[address] [place], [address], [facility] 03/19/2025 19:18:18 OBGyn Episode No OBEpisode recorded.
--- OUTSIDE RECORDS SUMMARY | 2025-07-12 14:20 | XMS_ITS | Clinical Summary ---
Author Organization [facility] A Address [address] [place] [address] Care Team Providers Care Geriatric Nurse Name Role Phone Manasa Arzate MD Primary Care Provider [phone] Allergies No known active allergies Medications cholecalciferol (VITAMIN D-3) 50,000 unit capsuleIndication s:Vitamin D deficiency Take 1 capsule (50,000 Units total) by mouth once a week 12 capsule 1 2 Active HYDROcodone-aceta minophen (NORCO) 5-325 mg per tabletIndications :Pain Take 1 tablet by mouth every 8 (eight) hours as needed for pain 20 tablet [address] (VOLTAREN) 50 mg EC tabletIndications :Acute right-sided low back pain with right-sided sciatica Take 1 tablet (50 mg total) by mouth 2 (two) times a day 60 tablet 3 Active cloNIDine (CATAPRES) 0.1 mg tabletIndications :Uncontrolled hypertension Take 1 tablet (0.1 mg total) by mouth 2 (two) times a day as needed for high blood pressure May take this Medication for blood pressures over 180. 60 tablet 1 4 Active hydrALAZINE (APRESOLINE) 25 mg tabletIndications :hypertension Take 1 tablet (25 mg total) by mouth 2 (two) times a day 60 tablet 11 4 Active olmesartan-hydroc hlorothiazide (BENICAR HCT) 40-12.5 mg per tabletIndications :Uncontrolled hypertension TAKE 1 TABLET BY MOUTH DAILY 30 tablet 1 4 Active Active Problems Problem Noted Date Diagnosed Date Acute right-sided low back pain with right-sided sciatica 11/26/2022 Encounter for screening mamm ogram for malignant neoplasm of breast 11/06/2022 Pure hypercholesterolemia 11/06/2022 Assessment & Plan (11/06/2022 3:52 AM SEEDLING PULLER): Chronic Follow low cholesterol diet Goal: TC<200, LDL<100, TG<150 Uncontrolled hypertension 09/28/2022 Assessment & Plan (06/01/2024 3:17 PM CDT): Uncontrolled (patient has tried Lisinopril and Valsartan in the past.) Continue Norvasc 5 mg BID and Olmesartan/HCTZ-40-12.5 Start Hydralazine 25mg BID PO. Clonidine 0.1mg given in office today for BP of 192/92. BP after 30 minutes 170/85. Clonidine 0.1 mg PRN for BP over 180. Follow up in 2 weeks. Monitor BP daily at home. Goal: SBP<140, DBP<90 Patient seemed confused in this appointment and the last two appointments. Given list of medications and when to take them at each appointment. Suggested an AM and PM pill box. Reviewed symptoms of high blood pressure. Patient not taking medications as prescribed. Assessment & Plan (05/18/2024 3:12 PM CDT): Uncontrolled (patient has tried Lisinopril and Valsartan in the past.) Continue Norvasc 5 mg BID and Olmesartan/HCTZ-40-12.5 Start Enalapril 10mg at HS. Clonidine 0.1 mg PRN for BP over 180. Follow up in one week. Monitor BP Goal: SBP<140, DBP<90 Patient seemed confused in this appointment and the one before about the medications that she is taking and how to take them. She was not taking norvasc correctly in the last two appointments. Patient was given a list on her BP medications and when to take them. Assessment & Plan (03/05/2023 5:22 AM CDT): Uncontrolled Take diovan and norvasc Monitor BP Goal: SBP<140, DBP<90 Assessment & Plan (02/05/2023 6:02 AM CDT): Uncontrolled Start diovan Cont norvasc Goal: SBP<140, DBP<90 Assessment & Plan (10/04/2022 1:50 PM SEEDLING PULLER): Uncontrolled Add norvasc Cont lisinopril Goal:SBP<140, DBP<90 Controlled type 2 diabetes m ellitus without complication, without long-term current use of insulin 09/28/2022 Assessment & Plan (11/06/2022 3:51 AM SEEDLING PULLER): Chronic Diet control Goal: Hgba1c<6.5 Assessment & Plan (10/04/2022 1:59 PM SEEDLING PULLER): Chronic Stable Diet controlled Goal: hgba1c<6.5 Elevated LDL cholesterol level 09/28/2022 Screening for colon cancer 09/28/2022 Left hip pain 09/28/2022 Assessment & Plan (10/04/2022 1:59 PM SEEDLING PULLER): New Order xray Order PT Well adult exam 06/01/2022 Overview (06/01/2022): Discussed healthy diet and disease prevention- reviewed working on healthy diet, regular physical activity to your level, wearing sun screen, seat belts. Reviewed no drinking or driving, no texting/driving Discussed importance of scheduling recommended screening tests. Discussed importance of regular physical examinations for health maintenance Health Maintenance: Last PAP: 2019, negative through Dr Latham Last mammogram: ordered- encouraged to schedule Last colonoscopy/cologuard: cologuard 2019, but with anemia will refer to GI Last Tdap: encouraged Last Shingrix: encouraged Last Flu: encouraged Last COVID: encouraged Test results: if you have not received communication about test results within 7 days of the test being performed, please contact the office. I strongly encourage myChart sign ups. It can facilitate communication flow. Please contact the office for instructions on signing up. Assessment & Plan (06/01/2022 4:05 PM CDT): Discussed healthy diet and disease prevention- reviewed working on healthy diet, regular physical activity to your level, wearing sun screen, seat belts. Reviewed no drinking or driving, no texting/driving Discussed importance of scheduling recommended screening tests. Discussed importance of regular physical examinations for health maintenance Health Maintenance: Last PAP: 2019, negative through Dr Latham Last mammogram: ordered- encouraged to schedule Last colonoscopy/cologuard: cologuard 2019, but with anemia will refer to GI Last Tdap: encouraged Last Shingrix: encouraged Last Flu: encouraged Last COVID: encouraged Test results: if you have not received communication about test results within 7 days of the test being performed, please contact the office. I strongly encourage PocketSuitehart sign ups. It can facilitate communication flow. Please contact the office for instructions on signing up. Grief at loss of child 10/02/2021 Assessment & Plan (10/02/2021 1:54 PM SEEDLING PULLER): Will refer to psychology encouraged healthy diet and exercise use support structures you have in place consider meditation-look at Calm jelani try to work on healthy sleep habits If mood worsens or changes, please contact the office Anything emergent, to the er Class 1 obesity due to exces s calories with serious comorbidity and body mass index (BMI) of 34.0 to 34.9 in adult 10/02/2021 Assessment & Plan (06/01/2022 4:06 PM CDT): BMI Follow-up includes: nutrition counseling. Assessment & Plan (10/02/2021 2:10 PM SEEDLING PULLER): BMI Follow-up includes: nutrition counseling. Anemia 11/26/2017 Assessment & Plan (06/01/2022 4:07 PM CDT): Chronic, but worse Will start slow iron Will refer to GI-reviewed possible causes including colon cancer, polyps, vs other. Agrees to set it up Recheck in 3 months Call for questions or concerns Assessment & Plan (10/02/2021 1:48 PM SEEDLING PULLER): Will recheck her labs Hypertension 11/26/2017 Assessment & Plan (04/18/2024 3:08 PM CDT): Chronic Stable Cont norvasc, olmesartan/hctz Goal: SBP<140, DBP<90 Patient states that she was taking her Norvasc as she thought that is what she was supposed to do. Advised patient to continue the Norvasc and the olmesartan/hctz. Will follow-up in 3-4 weeks. Assessment & Plan (11/06/2022 3:51 AM SEEDLING PULLER): Chronic Stable Cont norvasc, lisinopril Goal: SBP<140, DBP<90 Assessment & Plan (06/01/2022 5:49 PM CDT): Chronic, but under poor control Strongly stressed to take her medication daily as prescribed Reviewed dash diet to help work on her high blood pressure Follow-up to recheck her blood pressure once she is taking her medication Update me if her symptoms change or worsen We reviewed the risk of uncontrolled high blood pressure including stroke and heart attack, and that is important to take the medication daily Call for questions or concerns Assessment & Plan (10/02/2021 1:48 PM SEEDLING PULLER): Blood pressure on the lower side Encouraged to keep track of her BP Continue healthy changes Call for questions or concerns Vitamin D deficiency 11/26/2017 Assessment & Plan (10/04/2022 1:58 PM SEEDLING PULLER): Chronic Stable Cont vitamin d supplement Assessment & Plan (06/01/2022 4:08 PM CDT): Chronic, low normal Will restart Recheck in 6 months Assessment & Plan (10/02/2021 1:49 PM SEEDLING PULLER): Labs ordered Resolved Problems Problem Noted Date Diagnosed Date Resolved Date Acute URI 10/02/2021 06/01/2022 Assessment & Plan (10/02/2021 2:00 PM SEEDLING PULLER): Discussed viral nature of illness, treat symptomatically Tylenol/ibuprofen as needed, and can use medicine like mucinex or robitussin to help with the cough Increase fluids, rest and handwashing Warm saltwater gargles Consider a hot drink with honey Cool mist humidifier May use vicks vaporub on chest and feet as needed to help with cough Please call if symptoms change or worsen, to the ER for anything emergent Immunizations Immunization Administration Dates Next Due Influenza, Unspecified 04/18/2024(Deferr ed: Patient Refused),06/20/2022(Deferred: Patient Refused),06/20/2022(Deferred: Patient Refused),06/01/2022(Deferred: Patient Refused),10/02/2021(Deferred: Patient Refused),07/05/2021 Pfizer SARS-CoV-2 Monovalent Vaccination (12+ Yrs) PURPLE 07/23/2021,07/03/2021 Surgical History Surgery Date Site/Laterality Comments TUBAL LIGATION Medical History Medical History Date Comments Hypertension Family History Medical History Relation Name Comments No Known Problems Brother 1 No Known Problems Brother 2 No Known Problems Father No Known Problems Maternal Grandfather Diabetes Maternal Grandmother Arthritis Mother No Known Problems Paternal Grandfather No Known Problems Paternal Grandmother No Known Problems Sister 1 No Known Problems Sister 2 No Known Problems Sister 3 No Known Problems Son 1 No Known Problems Son 2 No Known Problems Son 3 No Known Problems Son 4 No Known Problems Son 5 Relation Name Status Comments Brother 1 Alive Brother 2 Alive Father Maternal Grandfather Maternal Grandmother Mother Alive Paternal Grandfather Paternal Grandmother Sister 1 Alive Sister 2 Alive Sister 3 Alive Son 1 Alive Son 2 Alive Son 3 Alive Son 4 Alive Son 5 Alive Social History Tobacco Use Types Packs/Day Years Used Date Smoking Tobacco: Never Tobacco Cessation:Counseling Given: Not Answered AUDIT-C Answer Date Recorded Q1: How often [...] on file Sexual Orientation Not on file Obstetrics History Last Filed Vital Signs Vital Sign Reading Time Taken Comments Blood Pressure 194/108 06/16/2024 9:00 AM CDT Pulse 83 06/16/2024 9:00 AM CDT Temperature 36.1 C (96.9 F) 06/16/2024 9:00 AM CDT Respiratory Rate 14 03/27/2024 3:05 PM CDT Oxygen Saturation 98% 06/16/2024 9:00 AM CDT Inhaled Oxygen Concentration - - Weight 83.1 kg (183 lb 3.2 oz) 06/16/2024 9:00 A M CDT Height 157.5 cm (5' 2) 06/16/2024 9:00 AM CDT Body Mass Index 33.51 06/16/2024 9:00 AM CDT Plan of Treatment Health Maintenance Due Date Last Done Comments Cervical Cancer Screening 1963 Dilated Eye Exam 1963 Foot Exam 1963 DTaP/Tdap/Td Vaccine (1 - Tdap) 1974 Hepatitis B Screening 1981 Zoster Vaccine (1 of 2) 2013 Breast Cancer Screening-Mammogram 09/02/2019 09/02/2018, 09/02/2018 Hemoglobin A1C 04/27/2023 10/28/2022, 05/21/2022 Regular Well Visit/Exam 18-64 06/01/2023 06/01/2022 Albumin Creatinine Ratio, Urine 10/28/2023 10/28/2022, 05/21/2022 Lipid Panel 10/28/2023 10/28/2022, 05/21/2022 eGFR 10/28/2023 10/28/2022, 05/21/2022 Depression Screening 03/27/2025 03/27/2024, 09/28/2022, 06/01/2022, Additional history exists Covid-19 Vaccine (2024- season) 2025 07/23/2021, 07/03/2021 Colon Cancer Screening-DNA Stool 11/05/2025 11/05/2022, 10/23/2019 Pneumococcal vaccine <65 (1 of 2 - PCV) 02/17/2028 Postponed from 1982 (Provider's clinical decision) Influenza Vaccine Discontinued 07/05/2021 Hepatitis C Screening Completed 05/21/2022 Procedures Procedure Name Priority Date/Time Associated Diagnosis Comments STOOL DNA COLOGUARD Routine 11/05/2022 9:53 AM SEEDLING PULLER Screening for colon cancer COMPREHENSIVE METABOLIC PANEL Routine 10/28/2022 8:25 AM SEEDLING PULLER Vitamin D deficiency Uncontrolled hypertension Controlled type 2 diabetes mellitus without complication, without long-term current use of insulin (HCC) Elevated LDL cholesterol level HEMOGLOBIN A1C Routine 10/28/2022 8:25 AM SEEDLING PULLER Vitamin D deficiency Uncontrolled hypertension Controlled type 2 diabetes mellitus without complication, without long-term current use of insulin (HCC) Elevated LDL cholesterol level LIPID PANEL Routine 10/28/2022 8:25 AM SEEDLING PULLER Vitamin D deficiency Uncontrolled hypertension Controlled type 2 diabetes mellitus without complication, without long-term current use of insulin (HCC) Elevated LDL cholesterol level ALBUMIN CREATININE RATIO, URINE Routine 10/28/2022 8:25 AM SEEDLING PULLER Vitamin D deficiency Uncontrolled hypertension Controlled type 2 diabetes mellitus without complication, without long-term current use of insulin (HCC) Elevated LDL cholesterol level HEPATITIS C ANTIBODY Routine 05/21/2022 10:21 AM CDT Need for hepatitis C screening test from Last 3 Months or Most Recently Relevant to Health Maintenance Results * Stool DNA - Cologuard (11/05/2022 9:53 AM SEEDLING PULLER) Stool DNA - Cologuard Negative Negative [facility] (CLIA #:[id number]) Comment: NEGATIVE TEST RESULT. A negative Cologuard result indicates a low likelihood that a colorectal cancer (CRC) or advanced adenoma (adenomatous polyps with more advanced pre-malignant features) is present. The chance that a person with a negative Cologuard test has a colorectal cancer is less than 1 in 1500 (negative predictive value >99.9%) or has an advanced adenoma is less than 5.3% (negative predictive value 94.7%). These data are based on a prospective cross-sectional study of 10,000 individuals at average risk for colorectal cancer who were screened with both Cologuard and colonoscopy. (Emerson Barnes al, N Engl J Med 2014;370(14):2865-6501) The normal value (reference range) for this assay is negative. COLOGUARD RE-SCREENING RECOMMENDATION: Periodic colorectal cancer screening is an important part of preventive healthcare for asymptomatic individuals at average risk for colorectal cancer. Following a negative Cologuard result, the [place] [employer] Society and U.S. Multi-Society Task Force screening guidelines recommend a Cologuard re-screening interval of 3 years. References: [place] [employer] Guideline for Colorectal Cancer Screening: https://www.cancer.org/cancer/chphp-ljzojs-byhlgt/xhsmagrsg-sebnvehoy-dgjehtl/ac s-rec ommendations.html.; Homer DK, Asa CR, Dolly LopezK, Colorectal Cancer Screening: Recommendations for Physicians and Patients from the U.S. Multi-Society Task Force on Colorectal Cancer Screening , Am J Gastroenterology 2017; 112:5804-7296. TEST DESCRIPTION: Composite algorithmic analysis of stool DNA-biomarkers with hemoglobin immunoassay. Quantitative values of individual biomarkers are not reportable and are not associated with individual biomarker result reference ranges. Cologuard is intended for colorectal cancer screening of adults of either sex, 45 years or older, who are at average-risk for colorectal cancer (CRC). Cologuard has been approved for use by the U.S. FDA. The performance of Cologuard was established in a cross sectional study of average-risk adults aged 50-84. Cologuard performance in patients ages 45 to 49 years was estimated by sub-group analysis of near-age groups. Colonoscopies performed for a positive result may find as the most clinically significant lesion: colorectal cancer [4.0%], advanced adenoma (including sessile serrated polyps greater than or equal to 1cm diameter) [20%] or non- advanced adenoma [31%]; or no colorectal neoplasia [45%]. These estimates are derived from a prospective cross-sectional screening study of 10,000 individuals at average risk for colorectal cancer who were screened with both Cologuard and colonoscopy. (Emerson Freeman, N Engl J Med 2014;370(14):4466-4816.) Cologuard may produce a false negative or false positive result (no colorectal cancer or precancerous polyp present at colonoscopy follow up). A negative Cologuard test result does not guarantee the absence of CRC or advanced adenoma (pre-cancer). The current Cologuard screening interval is every 3 years. ([place] [employer] Society and U.S. Multi-Society Task Force). Cologuard performance data in a 10,000 patient pivotal study using colonoscopy as the reference method can be accessed at the following location: www.[employer]/results. Additional description of the Cologuard test process, warnings and precautions can be found at www.cologuard.com. Stool 11/05/2022 9:53 AM SEEDLING PULLER 11/06/2022 12:26 PM SEEDLING PULLER Manasa Arzate MD LAB BODY FLUIDS AND STOOL S ORDERABLES Final Result [facility] (CLIA #:[id number]) [address] [place] [address] * (ABNORMAL) Albumin Creatinine Ratio, Urine (10/28/2022 8:25 AM SEEDLING PULLER) Creatinine, ur 83 20 - 275 mg/dL [facility] Microalbumin, ur 3.2 See Note: mg/dL [facility] Comment: Reference Range: Reference Range Not established Microalbumin/creat ratio 39(H) <30 mcg/mg creat [facility] Comment: The ADA defines abnormalities in albumin excretion as follows: Albuminuria Category Result (mcg/mg creatinine) Normal to Mildly increased <30 Moderately increased 30-299 Severely increased > OR = 300 The ADA recommends that at least two of three specimens collected within a 3-6 month period be abnormal before considering a patient to be within a diagnostic category. Urine 10/28/2022 8:25 AM SEEDLING PULLER 10/28/2022 8:30 AM SEEDLING PULLER us Manasa Arzate MD LAB URINE ORDERABLES Gabriela l Result [facility] [address] [facility] [place], [place] [address] * (ABNORMAL) Hemoglobin A1c (10/28/2022 8:25 AM SEEDLING PULLER) Hgb A1C 6.3(H) <5.7 % of total Hgb [facility] Comment: For someone without known diabetes, a hemoglobin A1c value between 5.7% and 6.4% is consistent with prediabetes and should be confirmed with a follow-up test. For someone with known diabetes, a value <7% indicates that their diabetes is well controlled. A1c targets should be individualized based on duration of diabetes, age, comorbid conditions, and other considerations. This assay result is consistent with an increased risk of diabetes. Currently, no consensus exists regarding use of hemoglobin A1c for diagnosis of diabetes for children. Blood 10/28/2022 8:25 AM SEEDLING PULLER 10/28/2022 8:30 AM SEEDLING PULLER Manasa rAzate MD LAB BLOOD ORDERABLES Gabriela l Result Performing Organization Address City/[facility] Co de Phone Number [employer] [facility] [address] [place] [address] * (ABNORMAL) Lipid panel (10/28/2022 8:25 AM SEEDLING PULLER) Cholesterol 184 <200 mg/dL [facility] HDL 41(L) > OR = 50 mg/dL [facility] Triglycerides 76 <150 mg/dL [facility] LDL 126(H) mg/dL (calc) [facility] Comment: Reference range: <100 Desirable range <100 mg/dL for primary prevention; <70 mg/dL for patients with CHD or diabetic patients with > or = 2 CHD risk factors. LDL-C is now calculated using the Bernadette calculation, which is a validated novel method providing better accuracy than the Friedewald equation in the estimation of LDL-C. Tenzin MCCURDY et al. NOEL. 2013;310(19): 3625-1751 (http://education.[employer]/faq/DBT738) Chol/HDL ratio 4.5 <5.0 (calc) [facility] Non-HDL, (LDL+VLDL) 143(H) <130 mg/dL (calc) [facility] Comment: For patients with diabetes plus 1 major ASCVD risk factor, treating to a non-HDL-C goal of <100 mg/dL (LDL-C of <70 mg/dL) is considered a therapeutic option. Blood 10/28/2022 8:25 AM SEEDLING PULLER 10/28/2022 8:30 AM SEEDLING PULLER us Manasa Arzate MD LAB BLOOD ORDERABLES Gabriela abdi Result [facility] [address] [facility] [place] [address] * (ABNORMAL) Comprehensive metabolic panel (10/28/2022 8:25 AM SEEDLING PULLER) Glucose 118(H) 65 - 99 mg/dL [facility] Comment: Fasting reference interval For someone without known diabetes, a glucose value between 100 and 125 mg/dL is consistent with prediabetes and should be confirmed with a follow-up test. BUN 14 7 - 25 mg/dL [facility] Creatinine 0.79 0.50 - 1.03 mg/dL [facility] eGFR 87 > OR = 60 mL/min/1. 73m2 [facility] Comment: The eGFR is based on the CKD-EPI 2020 equation. To calculate the new eGFR from a previous Creatinine or Cystatin C result, go to https://www.kidney.org/professionals/ kdoqi/gfr%5Fcalculator BUN/creat ratio NOT APPLICABLE 6 - 22 (calc) [facility] Sodium 135 135 - 146 mmol/L [facility] Potassium, pl 3.7 3.5 - 5.3 mmol/L [facility] Chloride 103 98 - 110 mmol/L [facility] CO2 27 20 - 32 mmol/L [facility] Calcium 9.2 8.6 - 10.4 mg/dL [facility] Protein, sr 9.9(H) 6.1 - 8.1 g/dL [facility] Albumin 3.8 3.6 - 5.1 g/dL [facility] GLOBULIN 6.1(H) 1.9 - 3.7 g/dL (calc) [facility] Alb/glob ratio 0.6(L) 1.0 - 2.5 (calc) [facility] Bilirubin, total 0.3 0.2 - 1.2 mg/dL [facility] Alk phos 71 37 - 153 U/L [facility] AST 14 10 - 35 U/L [facility] ALT (SGPT) 10 6 - 29 U/L [facility] Blood 10/28/2022 8:25 AM SEEDLING PULLER 10/28/2022 8:30 AM SEEDLING PULLER us Manasa Arzate MD LAB BLOOD ORDERABLES Gabriela l Result Performing Organization Address City/[facility] Co de Phone Number [facility] [address] [place] [address] * Hepatitis C antibody (05/21/2022 10:21 AM CDT) Hep C Ab Nonreactive Nonreactive [facility]OREN[facility] Comment: Interpretive Data Nonreactive: Antibodies to HCV not detected. Does NOT exclude the possibility of recent exposure to HCV. Equivocal: Equivocal for HCV antibodies. Supplemental molecular testing will be automatically performed to determine infection status in accordance with current CDC screening recommendations. Reactive: Positive for HCV antibodies. This may represent current or past HCV infection. Supplemental molecular testing will be automatically performed to determine current infection status in accordance with current CDC screening recommendations. Interpretive data was last revised on 2019. Blood 05/21/2022 10:2 1 AM CDT 05/21/2022 1:42 PM CDT Francisca Duggan MD LAB MICROBIOLOGY - GENERAL ORDERABLES Final Result Performing Organization Address City/[facility]/ZIP Co de Phone Number [facility] [address] [facility] [place] [address] from Last 3 Months or Most Recently Relevant to Health Maintenance Insurance [facility] Care Teams Geriatric Nurse Relationship Specialty Start Date End Date Manasa Arzate MD PCP - General Family Medicine 09/28/22
[2025-07-12 14:25] LABS: Hemoglobin A1C 5.5 % (<5.7)
[2025-07-12 14:28] LABS: Iron 60 ug/dL (37-170)
[2025-07-12 14:39] LABS: Percent Iron Saturation 23 % (20-50)
== END 2025-07-12 13:24 | disposition home or self-care (01) ==
PROVIDERS: PCP Family Medicine; Visit Provider Family Medicine
DX: R07.81 Pleurodynia (principal); E55.9 Vitamin D deficiency, unspecified; D50.9 Iron deficiency anemia, unspecified; R73.03 Prediabetes
CPT/HCPCS: 36415; 71110; 82306; 83036; 83540; 83550